=== PATIENT | female | born 1950 | race Caucasian/White ===

== ENCOUNTER → 2021-02-17 | Outpatient (CLI) | payer BC ==
[~2021-02-17] MED LIST: HYDROCHLOROTHIA25 M1; LEXAPRO20 MG; MACROBID 100 M100 M1 PO; PYRIDIUM200 MG PO; SPIRONOLACTONE100 M3; SYNTHROID88 MCG; WELLBUTRIN XL300 M2
== END ==
LOC: M.RAD 16:17
PROVIDERS: ATTEND Internal Medicine
DX: U07.1 COVID-19 (principal); J12.82 Pneumonia due to coronavirus disease 2019